=== PATIENT | male | born 1950 | race Caucasian/White ===

== ENCOUNTER 2017-05-17 18:09 | Emergency (ER) | payer MEDICARE, OTHER ==
[~2017-05-17] VITALS: Ht 175.3 cm; Wt 100.0 kg
[~2017-05-17 18:09] MED LIST: LEVO50TA48 PO; LISI10 PO
[2017-05-17 18:11] VITALS: BP 158/76; PULSE 85; RESP 15; TEMP 97.4; O2SAT 98
--- NOTE | 2017-05-17 19:08 | PD ---
Physical Exam Date Seen by Provider: May 17, 2017 Time Seen by Provider: 19:07 Narrative 66 yo male here for evaluation of left leg pain with no injury since yesterday night. Painful to even walk. Swollen and tender. Pain is 8/10. No other medical issues. No trauma. Does not radiate. Vitals are stable in triage. Awaiting Bed placement. Data Data Last Documented VS Vital Signs Date Time Temp Pulse Resp B/P Pulse Ox O2 Delivery O2 Flow Rate FiO2 05/17/17 18:11 97.4 85 15 158/76 98 MDM Medical Record Reviewed: Yes Supervised Visit with MARY: Ethan Dawson May 17, 2017 19:08
--- NOTE | 2017-05-17 22:55 | PD ---
HPI Chief Complaint: Pain: Acute or Chronic Time Seen by Provider: 22:48 Travel History International Travel<30 days: No Contact w/Intl Traveler<30days: No Traveled to known affect area: No History of Present Illness HPI 66-year-old white male with a history of hypertension, hypercholesterolemia and hypothyroidism presents to the emergency department with complaints of left lower leg pain and swelling. He states that actually he has noted increased swelling of both of his lower legs over the past week. The left is been greater than the right. He went out for a walk yesterday. After returning from the walk he had noticed increasing pain in the back of his left knee with radiation down his leg and up his leg. He states the pain is a moderate severity. He rates the pain an 8/10. Worse with ambulation or palpation. He denies any focal numbness, tingling or weakness. He states that he has difficulty ambulating due to pain. He denies any pain in the right leg. He denies any chest pain, shortness of breath, palpitations, fever, chills, abdominal pain or urinary symptoms. He states that he has never had pain in his lower leg is of this nature. He denies any trauma. No connective tissue disorders. No history of NC or stroke. Patient denies tobacco and alcohol. He has not seen his primary care doctor in several months. [facility] Past Medical History Narrative Medical Hypertension, hypercholesterolemia, hypothyroidism, arthritis Arthritis: Yes Asthma: Yes Blood Disorders: No Cancer: No Cardiovascular Problems: Yes (HTN) Diminished Hearing: No Endocrine: No Genitourinary: No Hypertension: Yes Immune Disorder: No Neurologic: No Psychiatric: No Reproductive: No Respiratory: Yes (ASTHMA) Immunizations Current: Yes Thyroid Disease: Yes (HYPO) Tetanus Vaccination: < 5 Years Past Surgical History Narrative Surgical Bilateral knee arthroscopies AICD: No Arteriovenous Shunt: No Insulin Pump: No Joint Replacement: No Pacemaker: No Social History Alcohol Use: No Tobacco Use: No Substance Use: No Allergies-Medications (Allergen,Severity, Reaction): Coded Allergies: No Known Allergies (Verified , 05/17/17) Reported Meds & Prescriptions Reported Meds & Active Scripts Active Reported Levothroid (Levothyroxine Sodium) 50 Mcg Tab 50 Mcg PO DAILY Prinivil 10 mg (Lisinopril) 10 Mg Tab 10 Mg PO DAILY Review of Systems Except as stated in HPI: all other systems reviewed are Neg Physical Exam Narrative GENERAL: Well-developed, well-nourished in no apparent distress. Nontoxic appearing. HEAD: Normocephalic, atraumatic. EYES: Pupils equal round and reactive. Extraocular motions intact. No scleral icterus. No injection or drainage. ENT: Nose clear. Throat without erythema, tonsillar hypertrophy or exudate. Uvula midline. Airway patent. NECK: Trachea midline. Supple, nontender, moves head freely. No central bony tenderness or spasm. CARDIOVASCULAR: Regular rate and rhythm without murmurs, gallops, or rubs. RESPIRATORY: Clear to auscultation. Breath sounds equal bilaterally. No wheezes , rales, or rhonchi. GASTROINTESTINAL: Abdomen soft, non-tender, nondistended. No hepato-splenomegaly , or palpable masses. No guarding. EXTREMITIES: Patient has 1+ edema in the right leg and 2+ edema in the left leg. This is down into both feet. Patient has a strong palpable dorsalis pedis and posterior tibialis pulse in the right foot. He has a fair dorsalis pedis and posterior tibialis pulse in the left leg. I have listened to the pulses on both feet with the pencil Doppler along with the nurse. Patient's skin is warm and dry. There is no erythema. There is no skin breakdown. There is no mottling. No Homans sign. The patient complains of pain in the proximal posterior calf into the posterior popliteal fossa and distal thigh. There is no pain in the anterior thigh or her anterior pretibial region. No pain in the foot. He has full range of motion. The right lower leg has no localizing tenderness. BACK: Nontender without deformity. No flank tenderness. NEUROLOGICAL: Awake, alert and oriented x 3 .Cranial nerves grossly intact. Motor and sensory grossly within normal limits. Normal speech. Data Data Last Documented VS Vital Signs Date Time Temp Pulse Resp B/P Pulse Ox O2 Delivery O2 Flow Rate FiO2 05/17/17 22:29 66 20 05/17/17 18:11 97.4 158/76 98 Orders Electrocardiogram (05/17/17 22:28) Complete Blood Count With Diff (05/17/17 22:28) Comprehensive Metabolic Panel (05/17/17 22:28) Creatine Kinase (Cpk) (05/17/17 22:28) Ckmb (Isoenzyme) Profile (05/17/17 22:28) Troponin I (05/17/17 22:28) Ua Includes Microscopic (05/17/17 22:28) Thyroid Stimulating Hormone (05/17/17 22:28) Chest, Single Ap (05/17/17 22:28) Iv Access Insert/Monitor (05/17/17 22:28) Ecg Monitoring (05/17/17 22:28) Us Leg Venous Doppler Bilat (05/17/17 22:28) CKMB (05/17/17 22:40) CKMB% (05/17/17 22:40) Labs Laboratory Tests Test 05/17/17 22:40 White Blood Count 4.5 TH/MM3 Red Blood Count 4.28 MIL/MM3 Hemoglobin 13.5 GM/DL Hematocrit 39.5 % Mean Corpuscular Volume 92.3 FL Mean Corpuscular Hemoglobin 31.5 PG Mean Corpuscular Hemoglobin 34.2 % Concent Red Cell Distribution Width 14.1 % Platelet Count 170 TH/MM3 Mean Platelet Volume 7.2 FL Neutrophils (%) (Auto) 43.1 % Lymphocytes (%) (Auto) 39.6 % Monocytes (%) (Auto) 13.2 % Eosinophils (%) (Auto) 3.2 % Basophils (%) (Auto) 0.9 % Neutrophils # (Auto) 1.9 TH/MM3 Lymphocytes # (Auto) 1.8 TH/MM3 Monocytes # (Auto) 0.6 TH/MM3 Eosinophils # (Auto) 0.1 TH/MM3 Basophils # (Auto) 0.0 TH/MM3 CBC Comment DIFF FINAL Differential Comment Sodium Level 138 MEQ/L Potassium Level 4.6 MEQ/L Chloride Level 107 MEQ/L Carbon Dioxide Level 24.8 MEQ/L Anion Gap 6 MEQ/L Blood Urea Nitrogen 23 MG/DL Creatinine 0.73 MG/DL Estimat Glomerular Filtration 107 ML/MIN Rate Random Glucose 108 MG/DL Calcium Level 9.0 MG/DL Total Bilirubin 0.4 MG/DL Aspartate Amino Transf 52 U/L (AST/SGOT) Alanine Aminotransferase 53 U/L (ALT/SGPT) Alkaline Phosphatase 38 U/L Total Creatine Kinase 245 U/L Creatine Kinase MB 2.4 NG/ML Troponin I 0.02 NG/ML Total Protein 7.8 GM/DL Albumin 3.3 GM/DL Thyroid Stimulating Hormone 1.700 uIU/ML 3rd [facility] Medical Decision Making Medical Screen Exam Complete: Yes Emergency Medical Condition: Yes Medical Record Reviewed: Yes Interpretation(s) Last 24 hours Impressions Lower Extremity Ultrasound 05/17/172227 Signed Impressions: Service Date/Time: Wednesday, May 17, 2017 22:41 - CONCLUSION: No DVT of either lower extremity. Miguel Angel Burnett MD Chest X-Ray 05/17/172227 Signed Impressions: Service Date/Time: Wednesday, May 17, 2017 22:33 - CONCLUSION: Left lower lobe atelectasis versus developing infiltrate. Jim Izquierod Jr., MD Differential Diagnosis Differential diagnoses: PVD, DVT, arterial occlusion, renal disease, sprain, strain, electrolyte abnormality, CHF, arthritis Narrative Course IV access is obtained. Patient's place in a cardiac care nurse along with sat monitoring. EKG, routine laboratory tests including CBC, chemistry, cardiac markers, and bilateral duplex Dopplers of the lower extremities to rule out DVT. We have performed a pencil Doppler pulses which are present on both lower extremities. The right is much stronger than the left. Patient's ultrasound of the lower extremities are negative for DVT. Chest x- ray shows mild cardiomegaly but no acute infiltrate he has some atelectasis. No congestive changes. Laboratory tests including CBC and chemistry have no acute changes. His cardiac markers are negative. Patient will be for his pain in his left leg. He is advised to elevate his feet and limit his fluid intake over next couple days and follow-up with his doctor. Patient's given Lortab 5 a grams by mouth for pain. He is medically stable for discharge. This is left leg pain, pedal edema rule out PVD Diagnosis Primary Impression: Left leg pain Additional Impressions: Pedal edema rule out PVD Patient Instructions: Narcotic given in the ED, General Instructions Additional Instructions: Rest. Elevation. Limit fluid intake to 1 L a day. Lortab for pain. Follow-up with your doctor in the next 24-48 hours. Return to the ER for emergencies. Med/Other Pt SpecificInfo: Prescription(s) given Disposition: 01 DISCHARGE HOME Condition: Stable Isaak Anderson May 17, 2017 22:55
--- NOTE | 2017-05-17 22:57 | RADRPT ---
EXAM DATE/TIME: 05/17/2017 22:33 [facility] COMPARISON: No previous studies available for comparison. INDICATIONS : Shortness of breath. MEDICAL HISTORY : None. SURGICAL HISTORY : None. ENCOUNTER: Initial ACUITY: 1 day PAIN SCORE: 0/10 LOCATION: Bilateral chest FINDINGS: A single portable frontal view of the chest shows a vague parenchymal density within the left lung ba se. Right is clear. No effusions. Mild cardiomegaly. A degenerative and scoliotic spine. CONCLUSION: Left lower lobe atelectasis versus developing infiltrate. Jim Izquierdo Jr., MD on May 17, 2017 at 22:55 Board Certified Radiologist. This report was verified electronically.
[2017-05-17 23:06] LABS: AUTOMATED NEUTROPHIL # 1.9 TH/MM3 (1.8-7.7); BASOPHIL % 0.9 % (0.0-2.0); EOSINOPHIL # 0.1 TH/MM3 (0-0.4); EOSINOPHIL % 3.2 % (0.0-4.0); HEMATOCRIT 39.5 % (39.0-51.0); HEMO FLAGS DIFF FINAL; LYMPH % 39.6 % (9.0-44.0); LYMPHOCYTE # 1.8 TH/MM3 (1.0-4.8); MEAN CELL VOLUME 92.3 FL (80.0-100.0); MEAN CORPUSCULAR HEMOGLOBIN 31.5 PG (27.0-34.0); MEAN CORPUSCULAR HGB CONC 34.2 % (32.0-36.0); MONO % 13.2 % (0.0-8.0); NEUT % 43.1 % (16.0-70.0); PLATELET COUNT 170 TH/MM3 (150-450); RED BLOOD COUNT 4.28 MIL/MM3 (4.50-5.90); RED CELL DISTRIBUTION WIDTH 14.1 % (11.6-17.2); WHITE BLOOD COUNT 4.5 TH/MM3 (4.0-11.0)
--- NOTE | 2017-05-17 23:20 | RADRPT ---
EXAM DATE/TIME: 05/17/2017 22:41 [facility] COMPARISON: No previous studies available for comparison. INDICATIONS : Bilateral leg swelling. MEDICAL HISTORY : Hypothyroidism. Hypertension. Arthritis. Asthma. SURGICAL HISTORY : Total knee replacement, left.Total knee replacement, right. ENCOUNTER: Initial ACUITY: 3 days PAIN SCORE: 4/10 LOCATION: Bilateral legs. TECHNIQUE: Venous ultrasound of the left and right leg was performed from the inguinal ligament to the proximal calf. Real-time, color Doppler and spectral tracing, compression and augmentation techniques were us ed. FINDINGS: RIGHT LEG: There is normal compressibility of the deep venous system from the inguinal region to the proximal ca lf. No echogenic clot is seen in the lumen of the common femoral, femoral, popliteal, and posterior tibial veins. There is a normal response of the venous system to proximal and distal augmentation an d respiration. LEFT LEG: There is normal compressibility of the deep venous system from the inguinal region to the proximal ca lf. No echogenic clot is seen in the lumen of the common femoral, femoral, popliteal, and posterior tibial veins. There is a normal response of the venous system to proximal and distal augmentation an d respiration. Bilateral viscous flow noted. CONCLUSION: No DVT of either lower extremity. Miguel Angel Burnett MD on May 17, 2017 at 23:18 Board Certified Radiologist. This report was verified electronically.
[2017-05-17 23:28] LABS: ALT (GPT) 53 U/L (12-78); ANION GAP 6 MEQ/L (5-15); AST (GOT) 52 U/L (15-37); BICARBONATE 24.8 MEQ/L (21.0-32.0); BLOOD UREA NITROGEN 23 MG/DL (7-18); CHLORIDE 107 MEQ/L (98-107); GLOMERULAR FILTRATION RATE 107 ML/MIN (>89); POTASSIUM 4.6 MEQ/L (3.5-5.1); SODIUM (NA) 138 MEQ/L (136-145)
[2017-05-17 23:40] LABS: ALKALINE PHOSPHATASE 38 U/L (45-117); CREATINE KINASE 245 U/L (39-308); TOTAL BILIRUBIN ADULT 0.4 MG/DL (0.2-1.0)
[2017-05-17 23:52] LABS: CKMB 2.4 NG/ML (0.5-3.6)
[2017-05-17 23:53] LABS: BACTERIA, URINE RARE /hpf; BLOOD, URINE NEG (NEG); GLUCOSE,URINE NEG (NEG); KETONE, URINE NEG (NEG); MUCUS URINE FEW /lpf (OCC); NITRITE,URINE NEG (NEG); SQUAMOUS EPITHELIAL CELL URINE <1 /hpf (0-5); URINE COLOR YELLOW (YELLW/STRAW)
[2017-05-17] MEDS ORDERED: HYDR-3533 PO (23:59)
[2017-05-18] MEDS ORDERED: ACETAMINOPHEN/HYDROcodone 325 MG/5 MG TAB PO ONE
[2017-05-18 02:49] VITALS: BP 143/75
--- NOTE | 2017-05-18 11:06 | EKG ---
Date Performed: 05/17/2017 Time Performed: 23:16:57 PTAGE: 66 years EKG: Sinus rhythm MODERATE INTRAVENTRICULAR CONDUCTION DELAY BORDERLINE ECG Compared to prior tracing no significant c zaida DOCTOR: Wilfrid Valadez Interpretating Date/Time 05/18/2017 11:05:08
== END 2017-05-18 02:16 | disposition home or self-care (01) ==
LOC: NEPD 18:09
DX: M79.662 Pain in left lower leg (principal); R60.0 Localized edema
CPT/HCPCS: 71010; 80053; 81001; 82550; 82552; 84443; 84484; 85025; 93005; 93970; 99285